=== PATIENT | male | born 1990 | race Caucasian/White ===

== ENCOUNTER 2018-03-23 22:33 | Emergency (ER) | payer OTHER ==
[~2018-03-23] VITALS: Ht 170.2 cm; Wt 90.7 kg
[~2018-03-23 22:33] MED LIST: Bactrim Ds Tab1 EACH PO; CEPH500 PO; FAMO40 PO; PROM25 PO; Percocet 5-3251 EACH PO; SULTRIDS PO
[2018-03-23] MEDS ORDERED: IBUP600 PO (23:53)
== END 2018-03-24 00:12 | disposition home or self-care (01) ==
LOC: ER 22:33
DX: S01.511A Laceration without foreign body of lip, initial encounter (principal); K08.89 Other specified disorders of teeth and supporting structures; F17.210 Nicotine dependence, cigarettes, uncomplicated; Y04.2XXA Assault by strike against or bumped into by another person, initial encounter
CPT/HCPCS: 99284

== ENCOUNTER 2018-08-06 15:13 | Emergency (ER) | payer MEDICAID ==
[~2018-08-06] VITALS: Ht 170.2 cm; Wt 90.7 kg
[~2018-08-06 15:13] MED LIST changes: +IBUP600 PO
[2018-08-06] MEDS ORDERED: Crutch1 EACH MISC (16:27)
== END 2018-08-06 16:30 | disposition home or self-care (01) ==
LOC: ER 15:13
DX: S93.401A Sprain of unspecified ligament of right ankle, initial encounter (principal); X50.9XXA Other and unspecified overexertion or strenuous movements or postures, initial encounter; F17.200 Nicotine dependence, unspecified, uncomplicated
CPT/HCPCS: 29515; 73610; 99283-25